=== PATIENT | female | born 1995 | race Caucasian/White ===

== ENCOUNTER 2017-10-22 12:23 | Emergency (ER) | payer OTHER | END 2017-10-22 13:01 | LOC: ERS 12:23 | DX: J06.9 Acute upper respiratory infection, unspecified (principal); J45.909 Unspecified asthma, uncomplicated; F17.210 Nicotine dependence, cigarettes, uncomplicated | CPT/HCPCS: 99282 ==

== ENCOUNTER 2018-04-28 12:17 | Emergency (ER) | payer OTHER, SELFPAY ==
--- NOTE | 2018-04-28 13:04 | RAD ---
RIGHT WRIT THREE VIEWS: HISTORY: Trauma. Pain. COMPARISON: None. FINDINGS: There is mild volar soft tissue swelling. No acute displaced fracture or malalignment. The scaphoid is intact. IMPRESSION: Mild volar soft tissue edema. POS: [facility]
== END 2018-04-28 13:17 | disposition home or self-care (01) ==
LOC: ERS 12:17
DX: M25.531 Pain in right wrist (principal); Z87.891 Personal history of nicotine dependence; J45.990 Exercise induced bronchospasm

== ENCOUNTER 2018-06-12 12:30 | Day surgery (SDC) | payer OTHER ==
[2018-06-12 13:07] VITALS: BMI 45.7
[2018-06-12] MEDS ORDERED: Acetaminophen 500 MG TAB PO SCH (14:00)
--- NOTE | 2018-06-12 14:20 | PDOC.LDHP ---
Labor and Delivery H&P Chief complaint: other (R rib pain) HPI: 22 yo at 31.4w by LMP/20.6w sono here with cc of "right rib pain." She reports it started 2 days ago and has been intermittent since that time. It is a 5/10 at the worst. She had this in her last but with the complication of placenta previa this she wanted to come in to be evaluated. She reports it is positional and she gets relief leaning toward the R and giving "space" under her R rib cage. She is eating and drinking normally. Denies any fever, chills, n/v/d or radiation of pain. She denies dysuria, hematuria or unusual frequency. Denies sick contacts, travel or eating anything unusual. +fm, denies vaginal bleeding, discharge. Current gestational age (weeks): 31 (31.4) Due date: 08/10/18 Dating criteria: last menstrual period, second trimester ultrasound Grav: 2 Para: 1 (1001) OB History Details: 1st : at term. IOL for Gestational DM. Current complications: other (Placenta previa, RH negative mother, and history of anxiety, depression, GERD) Abnormal US findings: Yes (placenta previa) Current medications: pre- vitamins, other (sertraline) Previous surgical history: none Allergies/Adverse Reactions: Allergies Allergy/AdvReac Type Severity Reaction Status Date / Time diphenhydramine HCl Allergy Hives Verified 06/12/18 13:02 [From Benadryl] Social history: none - Physical Exam Vital signs reviewed and normal: yes General: resting Heart: RRR Lungs: CTAB Abdomen: other (TTP in RUQ at R costal margin, no peritoneal signs) Extremeties: no edema FHT: category 1 (150/mod/+accel/no decel) Burnett contractions every: none - OB Labs Blood type: B RH: negative Antibody Screen: negative HIV: negative RPR: negative HEPSAg: negative 1 hour GCT: negative GBS: unknown Rubella: immune - Assessment 22 yo at 31.4w by LMP/20.6w sono here with RUQ/R rib pain consistent with costochondritis. - Plan -: 1. MSK R rib pain - Will give 1000mg Tylenol and monitor for 30 minutes - Extensive precautions regarding return/persistence/worsening of symptoms, fever, intolerance of PO/n/v/d for risk of cholestasis, cholecystitis, appendicits. Also discussed labor precautions including vaginal bleeding, contractions, LOF, decreased movement as reason for return as well. - Will give work excuse for today as she is on her feet for > 12 hours which will likely exacerbate symptoms 2. IUP - Other history and labs reviewed, s/p Tdap, pap NILM, 1 hour GTT 133, a1c 4.9 - Previa mgmt as below - Decreased movement and labor precautions as above - No indication of imminent delivery at this time - Next appt with Dr. Rogers is this 3. Rh negative - S/p 1st dose of Rhogam on 05/24/18 4. Placenta previa - Has sono with MFM next week - Labor precautions/vaginal bleeding re-discussed 5. Anxiety/depression - Continue sertraline Re-evaluate in 30 minutes
--- NOTE | 2018-06-12 14:56 | PDOC.EVN ---
Event Note - Event Note Event Note: After examination and discussion with patient, her right sided pain is musculoskeletal in nature and can be attributed to costochondritis secondary to physical exertion from her job. She is exquisitely tender over her rib margin with touch, but not at rest. After 1g of Tylenol there was no difference in pain. We decided to let patient go home but counseled her to take Tylenol for pain, as needed. Patient works at [employer] and her job entails a lot of lifting and bending. We provided a work note to limit decrease daily work hours and minimize bending and lifting. Instructed patient to follow up with her PCP and OB, Dr. Rogers, on her preset appointment this upcoming . <Chela De Anda - Last Filed: 06/12/18 14:48> - Event Note Event Note: I personally examined the patient. She is point tender over the right costal margin. Not a true Holland sign. No bleeding, loss of fluid or discharge. Her uterus is soft and non tender. strip is Cat 1, shows excellent variability with accelerations and no decels. No contractions. A: Costochondritis. Reassurance that although painful, not dangerous to health or baby. P Restrict work to 8 hrs/day. avoid bending. Tylenol ES for pain, max of 6 per /24 hrs. F/U with Dr. Rogers as scheduled on 06/16, and keep [facility] sono appointment in [place] 06/23/18. [facility] <Tung Leigh - Last Filed: 06/12/18 18:56>
== END 2018-06-12 14:55 | disposition home health service (06) ==
LOC: L&D/OP 12:30
PROVIDERS: ATTEND Emergency Medicine
DX: O99.89 Other specified diseases and conditions complicating pregnancy, childbirth and the puerperium (principal); R07.81 Pleurodynia; O44.03 Complete placenta previa NOS or without hemorrhage, third trimester; O99.343 Other mental disorders complicating pregnancy, third trimester; F41.8 Other specified anxiety disorders; Z3A.31 31 weeks gestation of pregnancy
CPT/HCPCS: 99283

== ENCOUNTER 2018-07-10 21:42 | Day surgery (SDC) | payer OTHER ==
[2018-07-10 22:11] VITALS: BP 123/75; TEMP 99.2; BMI 47.5
[2018-07-10 23:19] LABS: #Eosinphils 0.1 thou/uL (0.0-0.7); #Lymphocytes 1.4 thou/uL (1.20-3.40); #Monocytes 0.4 thou/uL (0.11-0.59); %Basophils 0.2 % (0.0-1.0); %Eosinophils 1.1 % (0.0-10.0); %Lymphocytes 13.9 % (21.0-51.0); %Monocytes 4.1 % (0.0-10.0); %Neutrophils 80.7 % (42.0-75.0); Hemoglobin 11.3 g/dL (12.0-16.0); Mean Corpuscular HGB CONC 35.8 g/dL (32.0-36.0); Mean Corpuscular Hemoglobin 30.9 pg (27.0-31.0); Mean Corpuscular Volume 86.2 fL (78.0-98.0); Mean Platelet Volume 5.7 fL (7.4-10.4); Platelet Count 234 thou/uL (130-400); RBC Distribution Width 12.3 % (11.5-14.5); Red Blood Cell (RBC) Count 3.67 mill/uL (4.20-5.40); White Blood Cell (WBC) Count 9.9 thou/uL (4.8-10.8)
--- NOTE | 2018-07-10 23:19 | PDOC.FPROB ---
FMR OB H&P: HPI - History of Present Illness Chief Complaint: Lower extremity swelling History of Present Illness: Ms. Huynh is a 22YO @ 35.4 weeks consistent with LMP/20.6 week sono who presented to the hospital with a chief complaint of bilateral lower extremity swelling that she states has been persistent since evening. The patient stated that on she first noticed the swelling despite the fact that she has been drinking plenty of water and has been avoiding salty foods. She spoke with a friend who is MA at [facility] [facility] who suggested that she try elevating her feet which she did. She reports that this helped some but that the swelling never completely resolved and has been persistent ever since. She states that her BP has been well controlled throughout her and she has never had any protein in her urine at any of her checkups. She endorses some blurry vision and RUQ pain but denies any headaches, scotomas, SOB, or chest pain. She states that since her arrival she may have felt a contraction when her baby was very active. She describes the sensation as feeling tightening across her abdomen with some vaginal discomfort. She denies any vaginal pain, bleeding, discharge or loss of vaginal fluid. Primary Care Physician: Dr. Elmer Rogers FMR OB H&P: Current - Care : 2 Para: 1001 Gestational age: 35.4 weeks Due date: 08/10/18 Dating Criteria: LMP/20.6 week sono Course/Complications: Placenta previa that has resolved, Rh negative mother, h/o anxiety/depression - OB Labs Blood type: B RH: negative Antibody Screen: negative HIV: negative RPR: negative HepBsAg: negative Rubella: immune 1 hour gtt: negative GBS: unknown FMR OB H&P: History - Past Medical History PMH: anxiety/depression - OB History OB History: 1st : delivered via at term; IOL for GDM - Surgical History Sx History: None - Social History Social History: No tobacco, EtOH or drug use. - Family History Family History: Mother- GDM and gestational HTN; now has DMII & HTN Maternal grandmother- HTN FMR OB H&P: Medications - Current Home Medications: Medication Instructions Recorded Confirmed Type [id number]/Iron Fum/Folic 1 each PO DAILY 09/22/15 06/12/18 History [ Tablet] Sertraline HCl 50 mg PO DAILY 07/10/18 07/10/18 History Allergies/Adverse Reactions: Allergies Allergy/AdvReac Type Severity Reaction Status Date / Time diphenhydramine HCl Allergy Hives Verified 06/12/18 13:02 [From Benadryl] FMR OB H&P: ROS - Review of Systems General: denies: fever/chills, weight/appetite/sleep changes Eyes: reports: double vision. denies: scotomas, floaters Cardiovascular: reports: edema. denies: chest pain Respiratory: denies: shortness of breath Gastrointestinal: reports: abdominal pain. denies: nausea, vomiting Genitourinary (Female): reports: polyuria, vaginal pressure. denies: dysuria, vaginal discharge, vaginal pain, vaginal bleeding Musculoskeletal: reports: swelling (in B/L LEs) Neurologic: denies: numbness, syncope, headache Psychological: reports: depression, anxiety FMR OB H&P: Vital Signs - Maternal Vital signs: Vital Signs - First Documented Temp Pulse Resp BP 99.2 F 83 18 123/75 07/10/18 21:58 07/10/18 21:58 07/10/18 21:58 07/10/18 21:58 - Heart Tones Baseline: 130 Variability: moderate Deceleration: absent Category: category 1 FMR OB H&P: Physical Exam - Physical Exam General: NAD, awake, alert and oriented HEENT: normocephalic and atraumatic, PERRLA, EOMI, grossly normal vision, grossly normal hearing, oropharynx clear Neck: supple, FROM Chest: non-tender to palpation Heart: RRR, normal S1/S2, no murmurs/rubs/gallops, pulses present, other (B/L nonpitting lower extremity edema up to both ankles.) General: CTAB, no respiratory distress, good air movement, no rales/rhonchi, no wheezing Abdomen: soft, gravid, bowel sound present, other (Tender to deep palpation just under right breast.) Musculoskeletal: pulses present, FROM in all four extremities Neurological: cranial nerves II through XII intact, sensation to pain,touch and proprioception grossly normal, no focal deficit Skin: no rash, good tugor Lymphatic: no unusual bruising or bleeding Psychiatric: intact recent and remote memory, good judgement and insight, normal mood and affect FMR OB H&P: A/P - Problem List (1) Swelling of lower extremity during in third trimester Current Visit: Yes Status: Acute Code(s): O12.03 - GESTATIONAL EDEMA, THIRD TRIMESTER (2) Depression Current Visit: Yes Status: Chronic Code(s): F32.9 - MAJOR DEPRESSIVE DISORDER, SINGLE EPISODE, UNSPECIFIED Qualifiers: Trimester: third trimester (3) Anxiety Current Visit: Yes Status: Chronic Code(s): F41.9 - ANXIETY DISORDER, UNSPECIFIED (4) Rh negative status during Current Visit: Yes Status: Acute Code(s): O09.899 - SUPERVISION OF OTHER HIGH RISK PREGNANCIES, UNSP TRIMESTER; Z67.91 - UNSPECIFIED BLOOD TYPE, RH NEGATIVE (5) History of gestational diabetes in prior , currently Current Visit: Yes Status: Resolved Code(s): O09.299 - SUPRVSN OF PREG W POOR REPRODCTV OR OBSTET HISTORY, UNSP TRI; Z86.32 - PERSONAL HISTORY OF GESTATIONAL DIABETES Disposition: 22YO @ 35.4 weeks consistent w/ LMP/20.6 week sono who presents with a chief complaint of persistent lower extremity swelling that has been ongoing for the last 4 days. 1. Lower extremity swelling: - Would like to r/o pre-eclampsia. BPs have varied since initial presentation with the highest reaching 157/89 while examining the patient. However swelling along with vision changes and RUQ pain are concerning. - Will order urine protein & creatinine levels as well as a CBC and CMP to evaluate platelets, LFTs & kidney function. - Will continue to monitor via NST & consider waiting another 4 hours to ensure there is not a second BP reading greater than 140/90. 2. sIUP @ 35.4 weeks: - FHTs reassuring on NST with baseline in 130s & moderate variability. - No concerns for labor at this point as only one possible contraction has been noted on the NST and mom denies any vaginal bleeding, discharge or loss of fluid. - Will continue to monitor via NST. 3. Rh negative mother: - Aware. - Patient is B negative. - Has received one dose of Rhogam per patient. 4. h/o anxiety/depression: - Aware. - Patient is taking sertraline for this. 5. h/o GDM: - Aware. - Normal 1 hour GTT this . Discussion: Date/Time: 07/10/18 2243 This H&P was discussed with [] and [] who agree with the above documentation and plan. Attending Addendum - Attending Addendum Date/Time: 07/11/18 0016 I personally evaluated the patient and discussed the management with Dr. Kearns. I agree with the History, Examination, Assessment and Plan.
[2018-07-10 23:38] LABS: ALT (SGPT) 7 U/L (8-55); AST (SGOT) 10 U/L (5-34); Albumin 3.3 g/dL (3.5-5.0); Alkaline Phosphatase 130 U/L (40-150); Anion Gap 12 mmol/L (10-20); BUN (Urea Nitrogen) 8 mg/dL (7.0-18.7); Bilirubin, Total 0.2 mg/dL (0.2-1.2); Calc. Creatinine Clearance 236 mL/min (70-130); Calcium 8.9 mg/dL (7.8-10.44); Carbon Dioxide 21 mmol/L (22-29); Chloride 106 mmol/L (98-107); Estimated GFR-MDRD Greater than 90; Globulin 3.8 g/dL (2.4-3.5); Glucose 71 mg/dL (70-105); Potassium 4.1 mmol/L (3.5-5.1); Protein, Total 7.1 g/dL (6.0-8.3); Sodium 135 mmol/L (136-145)
[2018-07-11 00:12] LABS: Protein, Urine Random Quant Less than 10 mg/dL (1-14)
--- NOTE | 2018-07-11 00:22 | PDOC.EVN ---
Event Note - Event Note Event Note: 22YO @ 35.5 weeks consistent w/ LMP/20.6 week alessandra who presented with a chief complaint of persistent bilateral lower extremity swelling that has been ongoing for the last 4 days. 1. Bilateral lower extremity edema: - Pre-e ruled out as platelets were WNL @ 234, LFTs & kidney function were WNL, & urine protein/Cr was <0.3. BP under 150/90 by time of discharge. - Patient cleared for d/c home & was instructed to keep her scheduled appt w/ her PCP, Dr. Rogers on 07/13/18 for routine follow-up visit. <Darcy Kearns - Last Filed: 07/11/18 00:18> Attending Addendum - Attending Addendum Date/Time: 07/11/18 0204 I personally evaluated the patient and discussed the management with Dr. Kearns. I agree with the Assessment and Plan. <Jl Gunderson - Last Filed: 07/11/18 02:05>
== END 2018-07-11 00:30 | disposition home or self-care (01) ==
LOC: L&D/OP 21:42
PROVIDERS: ATTEND Obstetrics & Gynecology
DX: O12.03 Gestational edema, third trimester (principal); O99.343 Other mental disorders complicating pregnancy, third trimester; F41.8 Other specified anxiety disorders; O09.299 Supervision of pregnancy with other poor reproductive or obstetric history, unspecified trimester; O36.0930 Maternal care for other rhesus isoimmunization, third trimester, not applicable or unspecified; Z86.32 Personal history of gestational diabetes; Z67.91 Unspecified blood type, Rh negative; Z3A.35 35 weeks gestation of pregnancy; Z79.899 Other long term (current) drug therapy; Z88.8 Allergy status to other drugs, medicaments and biological substances
CPT/HCPCS: 36415; 80053; 82570; 84156; 85025; 99284

== ENCOUNTER 2018-07-18 05:03 | Inpatient (IN) | payer OTHER ==
[2018-07-18 05:34] VITALS: BMI 47.2
[2018-07-18 05:40] LABS: Amnisure Test RUPTURE DETECTED (No Rupture)
[2018-07-18 05:41] LABS: Amnisure Internal Control QC ACCEPTABLE (ACCEPTABLE)
[2018-07-18] MEDS ORDERED: Lidocaine 1% (PF) 30 ML VIAL SC PRN (06:38)
[2018-07-18] MEDS ORDERED: Ondansetron HCl/PF 4 MG/2 ML Vial IVP PRN ×3 (06:38→16:53)
[2018-07-18] MEDS ORDERED: Promethazine HCl 25 MG/ML VIAL IM PRN ×2 (06:38→08:35)
[2018-07-18] MEDS ORDERED: Acetaminophen 500 MG TAB PO PRN (06:38)
[2018-07-18] MEDS ORDERED: Penicillin G Potassium 5 MILL.UNITS in Sodium Chloride 0.9% 100 ML IVPB SCH (06:45)
[2018-07-18] MEDS: Lactated Ringer's 1,000 ML IV SCH ×2 (06:50→11:07)
--- NOTE | 2018-07-18 06:51 | PDOC.FPROB ---
FMR OB H&P: HPI - History of Present Illness Chief Complaint: ctx, LOF History of Present Illness: 22 yo CF @ 36.5 wks GA by LMP and 20.6 wk US p/w ctx and loss of clear fluid at about 04:15 this morning. +FM. Denies VB. complicated by placenta previa during second trimester that resolved after repeat US by MFM on 06/24/18. Pt also has a hx of anxiety on sertraline. Primary Care Physician: Dr. Sriram Rogers FMR OB H&P: Current - Care : 2 Para: 1001 Gestational age: 36.5 Due date: 08/10/2018 Dating Criteria: LMP & 20 wk US - OB Labs Blood type: B RH: negative Antibody Screen: negative HIV: negative RPR: negative HepBsAg: negative Rubella: immune Urine drug screen: not done Gonorrhea: negative Chlamydia: negative 1 hour gtt: 133 A1c: 4.9 GBS: unknown FMR OB H&P: History - Past Medical History PMH: 1. Anxiety - OB History OB History: 1. Second trimester placenta previa, resolved 2. Rh negative s/p rhogam on 05/24 FMR OB H&P: Medications - Current Home Medications: Medication Instructions Recorded Confirmed Type [id number]/Iron Fum/Folic 1 each PO DAILY 09/22/15 06/12/18 History [ Tablet] Sertraline HCl 50 mg PO DAILY 07/10/18 07/18/18 History Allergies/Adverse Reactions: Allergies Allergy/AdvReac Type Severity Reaction Status Date / Time diphenhydramine HCl Allergy Hives Verified 06/12/18 13:02 [From Benadryl] FMR OB H&P: ROS - Review of Systems General: denies: fever/chills, weight/appetite/sleep changes Eyes: denies: vision changes Cardiovascular: denies: chest pain, palpitation Respiratory: denies: cough, shortness of breath Genitourinary (Female): denies: dysuria Neurologic: denies: headache FMR OB H&P: Vital Signs - Maternal Vital signs: Vital Signs - First Documented Temp Pulse Resp BP 99.3 F 80 18 132/68 07/18/18 05:32 07/18/18 05:32 07/18/18 05:32 07/18/18 05:32 - Heart Tones Baseline: 130 Variability: moderate Category: category 1 FMR OB H&P: Physical Exam - Physical Exam General: NAD, awake, alert and oriented HEENT: normocephalic and atraumatic, EOMI, MMM Heart: RRR, normal S1/S2, no murmurs/rubs/gallops General: CTAB, no respiratory distress, no wheezing Abdomen: soft, gravid, non-tender Neurological: no focal deficit Psychiatric: normal mood and affect FMR OB H&P: Results - Labs Lab results: Laboratory Results - last 24 hr 07/18/18 05:23 Amnio Swab Test RUPTURE DETECTED H FMR OB H&P: A/P - Problem List (1) premature rupture of membranes (PPROM) with unknown onset of labor Current Visit: Yes Status: Acute Code(s): O42.919 - PRETRM NOAH ROM, UNSP TIME BETW RUPT AND ONST LABR, UNSP TRI Assessment and Plan: -Pt presents with LOF at 04:15 this AM, approximately 2 hours prior to arrival. -Amnisure positive. -SVE /-1 by nurse with note of clear fluid. -GBS unknown, will initiate prophylaxis with PCN. -Admit to L&D for expectant management. (2) Rh negative status during Current Visit: No Status: Acute Code(s): O09.899 - SUPERVISION OF OTHER HIGH RISK PREGNANCIES, UNSP TRIMESTER; Z67.91 - UNSPECIFIED BLOOD TYPE, RH NEGATIVE Assessment and Plan: -s/p rhogam on 05/24/18 (3) Anxiety Current Visit: No Status: Chronic Code(s): F41.9 - ANXIETY DISORDER, UNSPECIFIED Assessment and Plan: -Controlled on Sertraline during Disposition: Admit to L&D for expectant management. Pt desires epidural. PCN for GBS prophylaxis. Discussion: Date/Time: 07/18/18 0649 This H&P was discussed with Dr. Barnard and Dr. Thakur who agree with the above documentation and plan. Attending Addendum - Attending Addendum Date/Time: 07/18/18 0943 I personally evaluated the patient and discussed the management with Dr. Watkins I agree with the History, Examination, Assessment and Plan documented above with any addition or exceptions noted below. Recent cervical exam 7 cm. Requested and received epidural with good effect. EFM reassuring. Will defer pitocin for now. Anticipate now active.
[2018-07-18 07:16] LABS: Hemoglobin 11.5 g/dL (12.0-16.0); Mean Corpuscular HGB CONC 34.3 g/dL (32.0-36.0); Mean Corpuscular Hemoglobin 29.8 pg (27.0-31.0); Mean Corpuscular Volume 86.8 fL (78.0-98.0); Platelet Count 239 thou/uL (130-400); RBC Distribution Width 12.8 % (11.5-14.5); Red Blood Cell (RBC) Count 3.87 mill/uL (4.20-5.40); White Blood Cell (WBC) Count 14.1 thou/uL (4.8-10.8)
[2018-07-18] MEDS ORDERED: DISCONTINUE ALL PREVIOUS NARCOTICS FS SCH (07:30)
[2018-07-18] MEDS ORDERED: Butorphanol Tartrate 1 MG/ML VIAL ONE (07:30)
[2018-07-18] MEDS ORDERED: Bupivacaine 0.5% 20 ML, fentaNYL Citrate/PF 400 MCG in Sodium Chloride 0.9% 72 ML EPIDURAL SCH (07:30)
[2018-07-18] MEDS ORDERED: Butorphanol Tartrate 1 MG/ML VIAL SLOW IVP PRN (07:37)
[2018-07-18 07:55] LABS: HBSAg Index 0.21 S/CO (0-0.99); Hep B Surf Ag Non-Reactive S/CO (NonReactive)
[2018-07-18 07:56] LABS: Syphilis Antibody Nonreactive (Nonreactive); Syphilis Antibody Index 0.05 S/CO (<1.00 Non-Reactive)
[2018-07-18] MEDS ORDERED: Eucerin (Mineral Oil/Petrolatum,White) 30 gm Jar TOP PRN (08:35)
[2018-07-18] MEDS ORDERED: Acetaminophen 325 MG TAB PO PRN (08:35)
[2018-07-18] MEDS ORDERED: Lactated Ringer's 500 ML IV PRN (08:35)
[2018-07-18] MEDS ORDERED: ePHEDrine/0.9% NaCl/PF SYRINGE 50 mg/10 ml SLOW IVP PRN (08:35)
[2018-07-18] MEDS ORDERED: Naloxone HCl 0.4 mg/ml Vial IVP PRN ×2 (08:35)
[2018-07-18] MEDS ORDERED: Communication Order-Pharmacy FS SCH (08:45)
[2018-07-18 10:10] LABS: Amphetamine Not Detected (NotDetected); Benzodiazepine Screen Not Detected (NotDetected); Cocaine Metabolite Screen Not Detected (NotDetected); Medtox Reader # READER 1; Methamphetamine Not Detected (NotDetected); Opiate Screen Not Detected (NotDetected); Phencyclidine (PCP) Not Detected (NotDetected); THC/Cannabinoid Screen Not Detected (NotDetected); Tricyclic Screen Not Detected (NotDetected)
[2018-07-18 10:11] LABS: Barbiturates Screen Detected (NotDetected); Medtox Control Line Valid? VALID (VALID); Methadone Not Detected (NotDetected); Oxycodone Screen Not Detected (NotDetected)
[2018-07-18] MEDS: Penicillin G 2.5 MILL.units 2.5 MILL.UNITS in Premix Bag 1 BAG IVPB SCH ×3 (11:07→21:39)
--- NOTE | 2018-07-18 11:46 | PDOC.LDPN ---
Labor & Delivery Progress Note - Subjective Subjective: comfortable, no concerns - Objective Vital signs reviewed and normal: yes General: NAD, resting Uterine fundus: non tender Dilation: 8 Effacement: 90% Station: 0 FHT: category 1 - Assessment (1) GBS screening not performed Code(s): [id number] - Current Visit: Yes Status: Acute (2) premature rupture of membranes (PPROM) with unknown onset of labor Code(s): O42.919 - PRETRM NOAH ROM, UNSP TIME BETW RUPT AND ONST LABR, UNSP TRI Current Visit: Yes Status: Acute (3) Rh negative status during Code(s): O09.899 - SUPERVISION OF OTHER HIGH RISK PREGNANCIES, UNSP TRIMESTER; Z67.91 - UNSPECIFIED BLOOD TYPE, RH NEGATIVE Current Visit: No Status: Acute (4) Anxiety Code(s): F41.9 - ANXIETY DISORDER, UNSPECIFIED Current Visit: No Status: Chronic (5) Depression Code(s): F32.9 - MAJOR DEPRESSIVE DISORDER, SINGLE EPISODE, UNSPECIFIED Current Visit: No Status: Chronic Qualifiers: Trimester: third trimester Plan: pitocin for augmentation -: This is a 22 yo F @ 36.5wks by LMP and 20wk US who presents with increased CTX, loss of fluids and amnisure +. PPROM - amnisure positive - patient received epidural - last check @ 1130 was - Will start pit to help with ctx as patient is currently not ctx - Will continue to monitor vitals and FHT GBS unknown - PCN X 2 - adequately treated Rh Neg - tx with rhogam in the outpatient Anxiety/Depression - pt on sertraline; continue medication <Heena Burgos - Last Filed: 07/18/18 11:44> - Assessment (1) premature rupture of membranes (PPROM) with unknown onset of labor Code(s): O42.919 - PRETRM NOAH ROM, UNSP TIME BETW RUPT AND ONST LABR, UNSP TRI Current Visit: Yes Status: Acute (2) Rh negative status during Code(s): O09.899 - SUPERVISION OF OTHER HIGH RISK PREGNANCIES, UNSP TRIMESTER; Z67.91 - UNSPECIFIED BLOOD TYPE, RH NEGATIVE Current Visit: No Status: Acute (3) Anxiety Code(s): F41.9 - ANXIETY DISORDER, UNSPECIFIED Current Visit: No Status: Chronic <Isrrael Thakur - Last Filed: 07/18/18 18:16> Attending Addendum - Attending Addendum Date/Time: 07/18/181815 I personally evaluated the patient and discussed the management with I agree with the History, Examination, Assessment and Plan documented above with any addition or exceptions noted below. <Isrrael Thakur - Last Filed: 07/18/18 18:16>
[2018-07-18] MEDS: NS w/ Oxytocin 10 units 500 ML IV SCH (12:13)
--- NOTE | 2018-07-18 13:27 | PDOC.LDPN ---
Labor & Delivery Progress Note - Subjective Subjective: comfortable, no concerns - Objective Vital signs reviewed and normal: yes General: NAD, resting, breathing through contractions Uterine fundus: non tender Dilation: 9 Effacement: 90% Station: 1+ FHT: category 1 [place] contractions every: 2-3min - Assessment (1) GBS screening not performed Code(s): [id number] - Current Visit: Yes Status: Acute (2) premature rupture of membranes (PPROM) with unknown onset of labor Code(s): O42.919 - PRETRM NOAH ROM, UNSP TIME BETW RUPT AND ONST LABR, UNSP TRI Current Visit: Yes Status: Acute (3) Rh negative status during Code(s): O09.899 - SUPERVISION OF OTHER HIGH RISK PREGNANCIES, UNSP TRIMESTER; Z67.91 - UNSPECIFIED BLOOD TYPE, RH NEGATIVE Current Visit: No Status: Acute (4) Anxiety Code(s): F41.9 - ANXIETY DISORDER, UNSPECIFIED Current Visit: No Status: Chronic (5) Depression Code(s): F32.9 - MAJOR DEPRESSIVE DISORDER, SINGLE EPISODE, UNSPECIFIED Current Visit: No Status: Chronic Qualifiers: Trimester: third trimester Plan: continue plan of care, pitocin for augmentation -: This is a 22 yo F @ 36.5wks by LMP and 20wk US who presents with increased CTX, loss of fluids and amnisure +. Currently receiving Pitocine for augmentation of labor. PPROM - amnisure positive - patient received epidural - last check @ 1130 was /+1 - Will continue pit to help with ctx; ny ever 2-3min - Will consider IUPC to better monitor - Will continue to monitor vitals and FHT GBS unknown - PCN X 2 - adequately treated Rh Neg - tx with rhogam in the outpatient Anxiety/Depression - pt on sertraline; continue medication
--- NOTE | 2018-07-18 14:52 | PDOC.OPDEL ---
Addendum entered and electronically signed by Sriram Rogers DO 07/18/18 15: 27: Upper Level Addendum: I Sriram Rogers DO agree with the findings listed below with exceptions listed below: A/P: delivered a viable F infant via @ 1433 w/ APGARS 8/9 @ 1/5 min , respectively. EBL 192mL. 1) PPROM IUP, delivered: Routine recovery, placenta for path review 2) Rh negative: Rhogam if indicated pending baby's blood type 3) Anxiety/depression on SSRI, stable Original Note: OB Operative/Delivery Note Delivery Dr/Surgeon: Dr. Sue Romero Assist: Attending: Dr Thakur Pre-Delivery Diagnosis: ruptured membrane, other (PPROM; augmenation of labor) Procedure/Post Delivery Dx: spontaneous vaginal delivery Weeks gestation: 36 (36.5) Anesthesia: epidural - Additional Findings/Plan Placenta delivered: spontaneous Repaired Obstetrical Laceration: other (left side wall superficial mucosal abrasion hemostatic) Estimated blood loss: 192mL Compilations/Other Findings: Pre-OP DX: 1)PPROM Post-Op Dx: 1) IUP, delivered Indications: A 22 yo @ 36.5 c/w 20 week sono presents for PPROM. Delivery Note: This is a 22 yo @ 36.5 c/w 20 week sono who delivered a viable female @ 1433 07/18/2018. Following an uneventful antepartum course a viable F infant was delivered over an intact perineum in the OP position. Anterior shoulder and then remainder of body delivered. Nuchal cord X 1. The head was held down and mouth was suctioned and manual stimulation applied. Cord clamped and cut after approx 1 minute cord clamp delay and cord blood was collected. Placenta delivered via Payne mechanism and 3-vessel cord was noted. Fundal massage was performed and fundus was firm. Cervix and vagina were inspected and found to have small left side wall superficial mucosal abrasion- hemostatic. went to the nursery for routine care. APGARS were 8&9 @ 1 & 5 minutes, respectively. Pt tolerated delivery well and will be transferred to post- for routine recovery. EBL 192ml. Post delivery plan: routine recovery <Heena Burgos - Last Filed: 07/18/18 14:50> Attending Addendum - Attending Addendum Date/Time: 07/18/187 I personally evaluated the patient and discussed the management with I agree with the History, Examination, Assessment and Plan documented above with any addition or exceptions noted below. Very nice delivery - direct OP, nuchal x 1. Healthy babe & mom. <Isrrael Thakur - Last Filed: 07/18/18 18:18>
[2018-07-18] MEDS: NS / Oxytocin 40 units/1000ml 1,000 ML IV PRN ×2 (15:00→16:55)
[2018-07-18] MEDS ORDERED: Lanolin Ointment 7 GM TUBE TOP PRN (16:53)
[2018-07-18] MEDS ORDERED: Adacel (T-DAP) 0.5 ML VIAL IM ONE (16:53)
[2018-07-18] MEDS ORDERED: Bisacodyl 10 MG SUPP PR PRN (16:53)
[2018-07-18] MEDS ORDERED: Benzocaine/Menthol 20-0.5% 60 ML CAN TOP PRN (16:53)
[2018-07-18] MEDS ORDERED: NS / Oxytocin 40 units/1000ml 1,000 ML IV SCH (16:53)
[2018-07-18] MEDS ORDERED: Milk Of Magnesia 30 ML UDCUP PO PRN (16:53)
[2018-07-18] MEDS: Ibuprofen 800 MG TAB PO SCH (21:17)
[2018-07-18] MEDS: Docusate Calcium (SURFAK) 240 MG CAP PO SCH (21:18)
[2018-07-19] MEDS: Lactated Ringer's 1,000 ML IV SCH ×5 (01:38→23:56)
[2018-07-19] MEDS: Penicillin G 2.5 MILL.units 2.5 MILL.UNITS in Premix Bag 1 BAG IVPB SCH ×6 (02:45→23:55)
[2018-07-19 05:41] LABS: Hemoglobin 10.1 g/dL (12.0-16.0); Mean Corpuscular HGB CONC 33.6 g/dL (32.0-36.0); Mean Corpuscular Hemoglobin 29.2 pg (27.0-31.0); Mean Platelet Volume 5.8 fL (7.4-10.4); Platelet Count 210 thou/uL (130-400); RBC Distribution Width 12.8 % (11.5-14.5); Red Blood Cell (RBC) Count 3.45 mill/uL (4.20-5.40); White Blood Cell (WBC) Count 10.1 thou/uL (4.8-10.8)
[2018-07-19] MEDS: Ibuprofen 800 MG TAB PO SCH ×3 (06:01→22:11)
[2018-07-19] MEDS: Docusate Calcium (SURFAK) 240 MG CAP PO SCH ×2 (08:54→22:11)
[2018-07-19] MEDS: Prenatal Vitamin 1 TAB PO SCH (08:54)
--- NOTE | 2018-07-19 09:24 | PDOC.PP ---
Post Progress Note Post Day #: 1 Subjective: This is a 22 yo F [id number] who delivered at 36.5wks on 07/18/18 @ 1433 via . She had some abdominal cramping overnight that was relieved with Motrin. She has no other complaints or concerns. She breast and bottle feeding baby. She denies fever, vision changes, headache, bloody leakage from below. PO intake tolerated: yes Flatus: yes Ambulation: yes Vital Signs (12 hours) Temp Pulse Resp BP 07/19/18 04:14 97.5 F L 71 20 101/53 L 07/19/18 01:40 98.1 F 69 20 111/60 Weight Weight 109.769 kg - Physical Examination General: NAD Cardiovascular: no m/r/g, RRR Respiratory: clear to auscultation bilaterally, non-labored breathing Abdominal: + bowel sounds, lochia Neurological: no gross focal deficits Psychiatric: A&Ox3, normal affect Result Diagrams: 07/19/18 05:29 Additional Labs: Post Labs Blood Type B NEGATIVE 07/18/18 07:00 Hep Bs Antigen Non-Reactive S/CO (NonReactive) 07/18/18 07:00 (1) GBS screening not performed Code(s): [id number] - Status: Acute (2) premature rupture of membranes (PPROM) with unknown onset of labor Code(s): O42.919 - PRETRM NOAH ROM, UNSP TIME BETW RUPT AND ONST LABR, UNSP TRI Status: Acute (3) Rh negative status during Code(s): O09.899 - SUPERVISION OF OTHER HIGH RISK PREGNANCIES, UNSP TRIMESTER; Z67.91 - UNSPECIFIED BLOOD TYPE, RH NEGATIVE Status: Acute (4) Anxiety Code(s): F41.9 - ANXIETY DISORDER, UNSPECIFIED Status: Chronic (5) Depression Code(s): F32.9 - MAJOR DEPRESSIVE DISORDER, SINGLE EPISODE, UNSPECIFIED Status : Chronic Qualifiers: Trimester: third trimester - Assessment/Plan This is a 22 yo F @ 36.5wks delivered viable F via . EBL 192. Minimal left abrasion. Hemostatic. No concerns. PPROM, delivered - Patient is doing well this morning - She is passing gas and ambulating - She is tolerating PO - She is alternating breast/bottle feeding; will consult platform consultant GBS unknown - PCN X 2 - adequately treated Rh Neg - Will give rhogram today - Mom's blood type: B neg, babys: O pos Anxiety/Depression - pt on sertraline; continue medication DISPO: will stay today and likely d/c tomorrow Case discussed with Dr. Thakur <Heena Burgos - Last Filed: 07/19/18 09:27> Vital Signs (12 hours) Temp Pulse Resp BP 07/19/18 13:18 98.1 F 77 24 H 140/70 07/19/18 13:15 98.4 F 73 24 H 07/19/18 09:24 98.4 F 73 24 H 125/65 07/19/18 08:50 98.4 F 73 24 H 07/19/18 04:14 97.5 F L 71 20 101/53 L Weight Weight 109.769 kg Result Diagrams: 07/19/18 05:29 Additional Labs: Post Labs Blood Type B NEGATIVE 07/18/18 07:00 Hep Bs Antigen Non-Reactive S/CO (NonReactive) 07/18/18 07:00 (1) premature rupture of membranes (PPROM) with unknown onset of labor Code(s): O42.919 - PRETRM NOAH ROM, UNSP TIME BETW RUPT AND ONST LABR, UNSP TRI Status: Acute (2) Rh negative status during Code(s): O09.899 - SUPERVISION OF OTHER HIGH RISK PREGNANCIES, UNSP TRIMESTER; Z67.91 - UNSPECIFIED BLOOD TYPE, RH NEGATIVE Status: Acute (3) Anxiety Code(s): F41.9 - ANXIETY DISORDER, UNSPECIFIED Status: Chronic <Isrrael Thakur - Last Filed: 07/19/18 15:15> Attending Addendum - Attending Addendum Date/Time: 07/19/18 4222 I personally evaluated the patient and discussed the management with Dr. Burgos I agree with the History, Examination, Assessment and Plan documented above with any addition or exceptions noted below. Patient doing well - bonding with baby. UDS was positive for barbiturates. Pt denies illicit drug use - we have little reason to suspect otherwise. Likely false positive. Will send out for confirmatory testing. Discussed with social media specialist/[employer] spring encaser. Will hold off on routine CPS consultation pending confirmatory results. <Isrrael Thakur - Last Filed: 07/19/18 15:15>
[2018-07-19] MEDS ORDERED: Bupivacaine/Epinephrine 0.25% 30 ML VIAL ONE ×2 (12:00)
[2018-07-19] MEDS: NS w/ Oxytocin 10 units 500 ML IV SCH (12:15)
[2018-07-20] MEDS: Ibuprofen 800 MG TAB PO SCH ×2 (06:17→13:57)
[2018-07-20 07:55] VITALS: BP 101/50; TEMP 98.5
--- NOTE | 2018-07-20 08:12 | PDOC.PP ---
Post Progress Note Post Day #: 2 Subjective: No acute evetns overnight. Pt had UDS yesterday which was positive for barbituate drugs. She reports she is only taking sertraline and denies taking any other medications aside from thos prescribed by us. She is on ibuprofen for pain control and this can result in false positive barbituates on UDS. Confirmatory test sent. This was discussed with pt in detail. Aside from that, pt reports she is ambulating, +BM, tolerating po and scant lochia. Denies headache, cp, sob, ruq/epigastric pain and headache. Some mild cramping but pain overall well controlled. PO intake tolerated: yes Flatus: yes Ambulation: yes Vital Signs (12 hours) Temp Pulse Resp BP 07/20/18 07:54 98.5 F 65 20 101/50 L 07/19/18 20:44 98.7 F 78 20 118/71 Weight Weight 109.769 kg - Physical Examination General: NAD Cardiovascular: no m/r/g, RRR Respiratory: clear to auscultation bilaterally, non-labored breathing Abdominal: + bowel sounds, lochia, no distention, appropriately TTP Fundus firm & at: below umbilicus Extremities: negative homans (B) Neurological: no gross focal deficits Psychiatric: A&Ox3, normal affect Result Diagrams: 07/19/18 05:29 Additional Labs: Post Labs Blood Type B NEGATIVE 07/18/18 07:00 Hep Bs Antigen Non-Reactive S/CO (NonReactive) 07/18/18 07:00 (1) premature rupture of membranes (PPROM) with unknown onset of labor Code(s): O42.919 - PRETRM NOAH ROM, UNSP TIME BETW RUPT AND ONST LABR, UNSP TRI Status: Acute (2) Rh negative status during Code(s): O09.899 - SUPERVISION OF OTHER HIGH RISK PREGNANCIES, UNSP TRIMESTER; Z67.91 - UNSPECIFIED BLOOD TYPE, RH NEGATIVE Status: Acute (3) Vaginal delivery Code(s): O80 - ENCOUNTER FOR FULL-TERM UNCOMPLICATED DELIVERY Status: Acute Comment: Term induction for gestational diabetes Fam Hx: Neg Mat Hx: Gest Diabetes- diet controlled 2nd degree hemostatic lac, hemostatic vaginal sidewall lac, labial lac repaired Routine PPC, encourage breast feeding, likely d/c today (4) Anxiety Code(s): F41.9 - ANXIETY DISORDER, UNSPECIFIED Status: Chronic - Assessment/Plan 1) PPROM, delivered: PP day 2, price stable for DC to home today with OP follow up in 2-4 weeks 2) RH negative: baby Rh pos, rhogam given yesterday, stable for dc to home with OP f/u 3) vaginal delivery: pain control with motrin and tylenol, stable for dc w/ op f /u 4) Anxiety: on sertraline: cont current medication; stable and ok for dc to home Dispo: PP day 2, pt doing great. Pos UDS for barbs likely false positive 2/2 ibuprofen. Confirmatory test sent. Likely ok for dc to home today w/ OP f/u. <Sriram Rogers - Last Filed: 07/20/18 08:09> Vital Signs (12 hours) Temp Pulse Resp BP 07/20/18 08:00 98.5 F 65 20 07/20/18 07:54 98.5 F 65 20 101/50 L Weight Weight 109.769 kg Result Diagrams: 07/19/18 05:29 Additional Labs: Post Labs Blood Type B NEGATIVE 07/18/18 07:00 Hep Bs Antigen Non-Reactive S/CO (NonReactive) 07/18/18 07:00 (1) premature rupture of membranes (PPROM) with unknown onset of labor Code(s): O42.919 - PRETRM NOAH ROM, UNSP TIME BETW RUPT AND ONST LABR, UNSP TRI Status: Acute (2) Rh negative status during Code(s): O09.899 - SUPERVISION OF OTHER HIGH RISK PREGNANCIES, UNSP TRIMESTER; Z67.91 - UNSPECIFIED BLOOD TYPE, RH NEGATIVE Status: Acute (3) Anxiety Code(s): F41.9 - ANXIETY DISORDER, UNSPECIFIED Status: Chronic <Isrrael Thakur - Last Filed: 07/20/18 13:17> Attending Addendum - Attending Addendum Date/Time: 07/20/18 2387 I personally evaluated the patient and discussed the management with Dr. Rogers I agree with the History, Examination, Assessment and Plan documented above with any addition or exceptions noted below. <Isrrael Thakur - Last Filed: 07/20/18 13:17>
[2018-07-20] MEDS: Prenatal Vitamin 1 TAB PO SCH (09:32)
[2018-07-20] MEDS: Docusate Calcium (SURFAK) 240 MG CAP PO SCH (09:32)
[2018-07-20] MEDS: NS w/ Oxytocin 10 units 500 ML IV SCH (09:32)
[2018-07-20] MEDS: Penicillin G 2.5 MILL.units 2.5 MILL.UNITS in Premix Bag 1 BAG IVPB SCH ×2 (09:32→13:56)
[2018-07-20] MEDS: Lactated Ringer's 1,000 ML IV SCH (14:01)
[2018-07-20 16:28] LABS: Ref Lab Test Ordered BARB CONF UR; Reference Lab Name LABCORP
== END 2018-07-20 16:15 | disposition home or self-care (01) | DRG 775 ==
LOC: L&D/OP 05:03 → L&D 06:22 → 3SW 18:20
PROVIDERS: ADMIT Family Medicine; ATTEND Family Medicine
PROC: 10E0XZZ Delivery of Products of Conception, External Approach (ICD-10-PCS; principal; 2018-07-18)
PROC: 0HQ9XZZ Repair Perineum Skin, External Approach (ICD-10-PCS; 2018-07-18)
DX: O42.913 Preterm premature rupture of membranes, unspecified as to length of time between rupture and onset of labor, third trimester (principal); O60.14X0 Preterm labor third trimester with preterm delivery third trimester, not applicable or unspecified; Z3A.36 36 weeks gestation of pregnancy; Z37.0 Single live birth; O69.81X0 Labor and delivery complicated by cord around neck, without compression, not applicable or unspecified; O76 Abnormality in fetal heart rate and rhythm complicating labor and delivery; O99.344 Other mental disorders complicating childbirth; F32.9 Major depressive disorder, single episode, unspecified; F41.9 Anxiety disorder, unspecified; O70.0 First degree perineal laceration during delivery
CPT/HCPCS: 36415; 51702; 80306; 84112; 85027; 85461; 86780; 86850; 86900; 86901; 87340; 88307; 90384; 96372; 99285; A4216; J0595; J2540; J3010; J3490; J7050

== ENCOUNTER 2018-09-20 18:36 | Emergency (ER) | payer OTHER ==
[2018-09-20] MEDS ORDERED: predniSONE 20 MG TAB ONE (19:02)
[2018-09-20] MEDS ORDERED: hydrOXYzine 25 MG TAB ONE (19:02)
[2018-09-20] MEDS ORDERED: Famotidine 20 MG TAB ONE (19:02)
== END 2018-09-20 20:22 | disposition home or self-care (01) ==
LOC: ERS 18:36
DX: T63.441A Toxic effect of venom of bees, accidental (unintentional), initial encounter (principal); J45.909 Unspecified asthma, uncomplicated; Z87.891 Personal history of nicotine dependence; Z79.899 Other long term (current) drug therapy
CPT/HCPCS: 94640; 96360; J7506; J7620

== ENCOUNTER 2018-10-30 10:43 | Emergency (ER) | payer OTHER | END 2018-10-30 11:21 | disposition home or self-care (01) | LOC: ERS 10:43 | DX: B00.1 Herpesviral vesicular dermatitis (principal); F32.9 Major depressive disorder, single episode, unspecified; F41.9 Anxiety disorder, unspecified; J45.909 Unspecified asthma, uncomplicated; Z87.891 Personal history of nicotine dependence; Z79.899 Other long term (current) drug therapy | CPT/HCPCS: 99283 ==

== ENCOUNTER 2019-01-11 10:41 | Emergency (ER) | payer SELFPAY ==
--- NOTE | 2019-01-11 11:28 | RAD ---
RIGHT FOOT 3 VIEWS: Date: 01/11/19 PROVIDED CLINICAL HISTORY: Right foot pain status post injury. FINDINGS: There is no evidence for fracture or other acute osseous abnormality. If there is persistent clinical concern, conservative management and follow-up imaging are advised. IMPRESSION: As above. POS: TPC
== END 2019-01-11 13:50 | disposition home or self-care (01) ==
LOC: ERS 10:41
DX: S93.601A Unspecified sprain of right foot, initial encounter (principal); J45.909 Unspecified asthma, uncomplicated; F41.9 Anxiety disorder, unspecified; F32.9 Major depressive disorder, single episode, unspecified; F17.210 Nicotine dependence, cigarettes, uncomplicated; Z79.899 Other long term (current) drug therapy; X50.9XXA Other and unspecified overexertion or strenuous movements or postures, initial encounter

== ENCOUNTER 2019-04-20 15:30 | Emergency (ER) | payer MEDICAID, OTHER ==
[2019-04-20] MEDS ORDERED: Ibuprofen 800 MG TAB ONE (16:20)
--- NOTE | 2019-04-20 16:48 | RAD ---
RIGHT ANKLE 3 VIEWS: Date: 04/20/19 HISTORY: Right ankle pain. FINDINGS/IMPRESSION: Soft tissue swelling is present. The ankle mortise is maintained. No acute fracture or dislocation is identified. POS: OFF
== END 2019-04-20 17:20 | disposition home or self-care (01) ==
LOC: ERS 15:30
DX: S93.401A Sprain of unspecified ligament of right ankle, initial encounter (principal); F17.210 Nicotine dependence, cigarettes, uncomplicated; F41.9 Anxiety disorder, unspecified; F32.9 Major depressive disorder, single episode, unspecified; W17.2XXA Fall into hole, initial encounter

== ENCOUNTER 2020-01-08 20:22 | Emergency (ER) | payer OTHER, SELFPAY ==
[2020-01-08] MEDS ORDERED: Acetaminophen 500 MG TAB ONE (20:59)
[2020-01-08] MEDS ORDERED: Ketorolac Tromethamine 30 MG/ML VIAL ONE (20:59)
--- NOTE | 2020-01-08 22:00 | CT ---
CT BRAIN WITHOUT CONTRAST: HISTORY: Generalized headache FINDINGS: No evidence of acute infarct, hemorrhage, midline shift or abnormal extra-axial fluid collections is seen. The ventricular size is appropriate and the basilar cisterns are patent. The bony calvarium is intact. The mastoid air cells are well aerated. There is mucosal disease in the right sphenoid si nus. IMPRESSION: No CT evidence of acute intracranial process. Paranasal sinus disease.
== END 2020-01-08 22:17 | disposition home or self-care (01) ==
LOC: ERS 20:22
DX: G43.909 Migraine, unspecified, not intractable, without status migrainosus (principal); F41.9 Anxiety disorder, unspecified; F32.9 Major depressive disorder, single episode, unspecified; F17.210 Nicotine dependence, cigarettes, uncomplicated; Z79.899 Other long term (current) drug therapy
CPT/HCPCS: 70450; 96361; 96374; J1885

== ENCOUNTER 2021-05-20 04:30 | Emergency (ER) | payer SELFPAY ==
[2021-05-20] MEDS ORDERED: HYDROcodone/Acetaminophen 7.5/325 mg Tablet ONE (07:17)
== END 2021-05-20 07:25 | disposition home or self-care (01) ==
LOC: ERS 04:30
DX: K03.81 Cracked tooth (principal); K02.9 Dental caries, unspecified; J45.909 Unspecified asthma, uncomplicated; Z87.891 Personal history of nicotine dependence
CPT/HCPCS: 99283

== ENCOUNTER 2021-08-31 16:03 | Emergency (ER) | payer SELFPAY | END 2021-08-31 17:23 | LOC: ERS 16:03 | DX: Z53.21 Procedure and treatment not carried out due to patient leaving prior to being seen by health care provider (principal) ==

== ENCOUNTER 2022-01-21 20:49 | Emergency (ER) | payer OTHER, MEDICAID ==
[2022-01-21] MEDS ORDERED: Ondansetron ODT 4 MG TAB ONE (22:05)
[2022-01-21] MEDS ORDERED: Acetaminophen 500 MG TAB ONE (22:47)
== END 2022-01-21 23:26 | disposition home or self-care (01) ==
LOC: ERS 20:49
DX: S01.431A Puncture wound without foreign body of right cheek and temporomandibular area, initial encounter (principal); S80.12XA Contusion of left lower leg, initial encounter; S80.811A Abrasion, right lower leg, initial encounter; V29.9XXA Motorcycle rider (driver) (passenger) injured in unspecified traffic accident, initial encounter
CPT/HCPCS: 70450; 70486; Q0162

== ENCOUNTER 2022-06-15 07:17 | Emergency (ER) | payer MEDICAID, SELFPAY ==
[2022-06-15 08:12] LABS: Bacteria/HPF None Seen HPF (None Seen); Bilirubin Negative (Negative); Blood, Urine Negative (Negative); Clarity Clear (Clear); Glucose, Urine (Dipstick) Normal (Negative); Ketone, Urine Negative (Negative); Leukocyte 25 Leu/uL (Negative); Nitrite Negative (Negative); Protein, Urine (Dipstick) 10 mg/dL (Neg-Trace); RBC/HPF None Seen HPF (0-3); Specific Gravity, Urine 1.019 (1.002-1.036); Urobilinogen Normal mg/dL (Less than 2); WBC/HPF 0-3 HPF (0-3)
[2022-06-15] MEDS ORDERED: Ketorolac Tromethamine 30 MG/ML VIAL ONE (08:41)
[2022-06-15 09:07] LABS: Pregnancy Test - Urine (BHCG) Negative (Negative); Pregu Control Background? CLEAR/WHITE (CLR/WHITE); Pregu Control Bar Appear? YES (CONTROL BAR); Specific Gravity 1.021 (1.002-1.036)
== END 2022-06-15 09:40 | disposition home or self-care (01) ==
LOC: ERS 07:17
DX: M54.50 Low back pain, unspecified (principal)
CPT/HCPCS: 81003; 81015; 81025; 96372; 99283; J1885

== ENCOUNTER 2023-02-21 19:09 | Emergency (ER) | payer MEDICAID, SELFPAY ==
[2023-02-21 21:23] LABS: SARS-CoV-2 NAA Rapid Test DETECTED (NotDetected)
== END 2023-02-21 20:50 | disposition home or self-care (01) ==
LOC: ERS 19:09
DX: J06.9 Acute upper respiratory infection, unspecified (principal); Z20.822 Contact with and (suspected) exposure to COVID-19
CPT/HCPCS: 99283

== ENCOUNTER 2023-03-22 19:16 | Emergency (ER) | payer MEDICAID, SELFPAY ==
[2023-03-22] MEDS ORDERED: Ipratropium/Albuterol 3 ML NEB ONE (20:59)
[2023-03-22] MEDS ORDERED: Dexameth. Sod Phosp. 10 MG/ML (CHEMO USE ONLY) ONE (21:12)
== END 2023-03-22 22:14 | disposition home or self-care (01) ==
LOC: ERS 19:16
DX: J20.9 Acute bronchitis, unspecified (principal)
CPT/HCPCS: 71045; 94640; J1100; J7620

== ENCOUNTER 2023-10-08 09:02 | Emergency (ER) | payer SELFPAY ==
[2023-10-08] MEDS ORDERED: HYDROcodone/Acetaminophen 5/325 mg Tablet ONE (09:36)
== END 2023-10-08 11:10 | disposition home or self-care (01) ==
LOC: ERS 09:02
DX: M25.531 Pain in right wrist (principal)

== ENCOUNTER 2023-12-26 18:50 | Emergency (ER) | payer BC, OTHER ==
[2023-12-26] MEDS ORDERED: Boostrix 0.5 ML (Tdap) VIAL (>/=7 yrs of age) ONE (19:30)
[2023-12-26] MEDS ORDERED: Ketorolac Tromethamine 30 MG (1 mL) VIAL ONE (19:30)
== END 2023-12-26 20:17 | disposition home or self-care (01) ==
LOC: ERS 18:50
DX: S91.311A Laceration without foreign body, right foot, initial encounter (principal); Z23 Encounter for immunization; W25.XXXA Contact with sharp glass, initial encounter
CPT/HCPCS: 90471; 90715; 96372; J1885

== ENCOUNTER 2024-10-04 07:52 | Emergency (ER) | payer OTHER, BC ==
[2024-10-04] MEDS ORDERED: Ketorolac Tromethamine 30 MG (1 mL) VIAL ONE (09:08)
[2024-10-04] MEDS ORDERED: Morphine 4 MG/ML VIAL ONE (09:09)
== END 2024-10-04 09:32 | disposition home or self-care (01) ==
LOC: ERS 07:52
DX: L02.214 Cutaneous abscess of groin (principal)
CPT/HCPCS: 96372; 99282; J1885; J2272